=== PATIENT | female | born 1990 | race African-American/Black ===

== ENCOUNTER 2017-02-22 10:49 | Emergency (ER) | payer OTHER ==
[2017-02-22 10:54] VITALS: BP 145/81; PULSE 74; TEMP 98.1; BMI 28.3
--- NOTE | 2017-02-22 11:41 | PDOC ---
History of Present Illness - General Chief Complaint: Sore Throat Stated Complaint: THROAT DISCOMFORT Time Seen by Provider: 02/22/17 11:36 - History of Present Illness Initial Comments: 02/22/17 12:11 Patient is a 26-year-old female with no past medical history who presents to the emergency department today complaining that something is stuck in her throat. Patient states that she has felt the symptoms are approximately a year now, with onset starting approximately 3 months into her first . She states that she thought her symptoms would get better with the delivery of her child however they have remained the same. She states that she has tried clearing her throat with water, juice, milk with no relief. Admits to halitosis and nausea in the morning. Denies painful swallowing. Denies fevers, chills, chest pain and vomiting. Past History - Travel Traveled outside of the country in the last 30 days: No Close contact w/someone who was outside of country & ill: No - Past Medical History Allergies/Adverse Reactions: Allergies Allergy/AdvReac Type Severity Reaction Status Date / Time shellfish derived Allergy Mild Itching Verified 02/22/17 10:53 Home Medications: Ambulatory Orders NK [No Known Home Medication] 02/22/17 Asthma: Yes Cancer: No Cardiac Disorders: No Diabetes: No HTN: No Seizures: No Thyroid Disease: No - Immunization History Immunization Up to Date: Yes - Psycho/Social/Smoking Cessation Hx Anxiety: No Suicidal Ideation: No Smoking History: Never smoked Have you smoked in the past 12 months: No Information on smoking cessation initiated: No Hx Alcohol Use: No Drug/Substance Use Hx: No Substance Use Type: None Hx Substance Use Treatment: No Review of Systems - Review of Systems Able to Perform ROS?: Yes Is the patient limited Khmer proficient: No Constitutional: Yes: Weight Stable. No: Chills, Fever, Malaise, Weakness HEENTM: Yes: Difficulty Swallowing (Foreign body sensensation) Respiratory: No: Cough, Shortness of Breath, Wheezing Cardiac (ROS): No: Chest Pain, Chest Tightness ABD/GI: Yes: Nausea. No: Constipated, Diarrhea, Vomiting All Other Systems: Reviewed and Negative *Physical Exam - Vital Signs Last Vital Signs Temp Pulse Resp BP Pulse Ox 98.1 F 74 19 145/81 100 02/22/17 10:51 02/22/17 10:51 02/22/17 10:51 02/22/17 10:51 02/22/17 10:51 Medical Decision Making - Medical Decision Making 02/22/17 12:14 Patient is a 26-year-old female with no past medical history who presents to the emergency department today with a foreign body sensation in her throat. Her symptoms have been occurring for over a year and patient states that she does not remember getting a food bolus stuck in her throat. Differential diagnosis includes but not limited to zenkers diverticulum, globus hystericus. 1. X-ray soft tissue 2. Re-evaluate 02/22/17 13:20 X-ray: AP and lateral views revealed intact prevertebral soft tissues, straightening, intact cervical spine, normal epiglottis normal airway. There is no sign of radiopaque foreign body or prevertebral soft tissue air. There is normal hyoid bone and Thyroid cartilage. If symptoms persist further imaging with CT or direct visualization may be of help. Will discharge home at this time with ENT follow up. Pt. understands all discharge instructions and all questions were answered at this time. *DC/Admit/Observation/Transfer Diagnosis at time of Disposition: Foreign body sensation in throat - Discharge Dispostion Disposition: HOME Condition at time of disposition: Good Admit: No - Referrals Referrals: Nathan Tompkins MD [Staff Physician] - - Patient Instructions Additional Instructions: Your x-ray today did not show any foreign body stuck in your throat. Follow up with Dr. Tompkins (ears, nose, throat), for further work up. Take zantac twice a day for the nausea. This medication is over the counter. Return to the ED if you have trouble breathing, fevers, chills, or any changes in your symptoms. - Post Discharge Activity Work/School Note: Back to Work
== END 2017-02-22 13:30 | disposition home or self-care (01) ==
LOC: JERFT 10:49
DX: R09.89 Other specified symptoms and signs involving the circulatory and respiratory systems (principal)
CPT/HCPCS: 70360-TC; 84703; 99281-25

== ENCOUNTER 2018-04-21 13:25 | Emergency (ER) | payer OTHER ==
[2018-04-21 13:38] VITALS: BP 110/65; PULSE 75; TEMP 98.5; BMI 24.7
--- NOTE | 2018-04-21 14:41 | PDOC ---
History of Present Illness - General Chief Complaint: Pain, Acute Stated Complaint: PCP SENT, [facility] Time Seen by Provider: 04/21/18 14:34 - History of Present Illness Initial Comments: 04/21/18 14:38 27-year-old female with past medical history significant for asthma presents for evaluation of atraumatic onset of left wrist pain 2 weeks without associated symptoms. She describes her pain as achy with radiation into her thumb index and middle finger. She states the pain is worse at night. Past History - Past Medical History Allergies/Adverse Reactions: Allergies Allergy/AdvReac Type Severity Reaction Status Date / Time shellfish derived Allergy Mild Itching Verified 04/21/18 13:35 Home Medications: Ambulatory Orders NK [No Known Home Medication] 02/22/17 Asthma: Yes Cancer: No Cardiac Disorders: No COPD: No Diabetes: No HTN: No Seizures: No Thyroid Disease: No - Immunization History Immunization Up to Date: Yes - Suicide/Smoking/Psychosocial Hx Smoking History: Never smoked Have you smoked in the past 12 months: No Hx Alcohol Use: No Drug/Substance Use Hx: No Substance Use Type: None Hx Substance Use Treatment: No Review of Systems - Review of Systems Musculoskeletal: Yes: See HPI, Joint Pain Neurological: Yes: See HPI, Numbness All Other Systems: Reviewed and Negative *Physical Exam - Vital Signs Last Vital Signs Temp Pulse Resp BP Pulse Ox 98.5 F 75 18 110/65 99 04/21/18 13:35 04/21/18 13:35 04/21/18 13:35 04/21/18 13:35 04/21/18 13:35 - Physical Exam Comments: 04/21/18 14:39 Left first skin color and temperature are normal range of motion is full with mild discomfort. She has diffuse nonspecific tenderness a positive median nerve compression test no gross sensorimotor deficits. She's neurovascularly intact Medical Decision Making - Medical Decision Making 04/21/18 14:39 Carpal tunnel syndrome, response for nighttime use follow-up with hand surgery physician. Tylenol for pain. *DC/Admit/Observation/Transfer Diagnosis at time of Disposition: Carpal tunnel syndrome - Discharge Dispostion Disposition: HOME Condition at time of disposition: Stable Decision to Admit order: No - Referrals Referrals: Remigio Galindo MD [Primary Care Provider] - Jm Tang MD [Staff Physician] - - Patient Instructions Printed Discharge Instructions: Carpal Tunnel Syndrome Additional Instructions: Return to the emergency room should symptoms worsen or go unresolved. May take Tylenol for pain. The wrist splint is only for nighttime use the knee should sleep and he did not need to wear during the day. Follow-up with hand surgery for further evaluation and treatment options within the next 1-2 days. - Post Discharge Activity
== END 2018-04-21 14:48 | disposition home or self-care (01) ==
LOC: JERFT 13:25
DX: G56.02 Carpal tunnel syndrome, left upper limb (principal); Z87.09 Personal history of other diseases of the respiratory system
CPT/HCPCS: 99281-25

== ENCOUNTER 2019-07-09 14:09 | Emergency (ER) | payer OTHER ==
[2019-07-09 14:30] VITALS: BP 107/64; PULSE 70; TEMP 98.1; BMI 24.7
[2019-07-09] MEDS ORDERED: DIPHTH,PERTUSS(ACELL),TET 0.5 ML DISP.SYRIN IM ONE (14:55)
[2019-07-09] MEDS ORDERED: IBUPROFEN 600 MG TABLET (FP) PO ONE ×3 (14:55→15:37)
[2019-07-09] MEDS ORDERED: METHOCARBAMOL 500 MG TABLET PO ONE (15:34)
[2019-07-09] MEDS ORDERED: METHOCARBAMOL 500 MG TABLET ONE (15:39)
--- NOTE | 2019-07-09 15:39 | PDOC ---
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 Patient report taking Tylenol 4 days ago for symptoms but has not taken anything now since then. Denies numbness, tingling sensation or radiculopathy. Denies urinary frequency , dysuria or urinary symptoms. Patient report increased pain when getting up from seated position or laying position. Denies any fall or trauma. Denies any other symptoms Is this a multiple visit Asthma Patient?: No Past History - Past Medical History Allergies/Adverse Reactions: Allergies Allergy/AdvReac Type Severity Reaction Status Date / Time shellfish derived Allergy Mild Itching Verified 04/21/18 13:35 Home Medications: Ambulatory Orders Methocarbamol [Robaxin -] 500 mg PO BID PRN #20 tablet 07/09/19 Naproxen 500 mg PO BID PRN #20 tablet 07/09/19 Asthma: Yes Cancer: No Cardiac Disorders: No COPD: No Diabetes: No HTN: No Seizures: No Thyroid Disease: No - Immunization History Immunization Up to Date: Yes - Psycho Social/Smoking Cessation Hx Smoking History: Never smoked Have you smoked in the past 12 months: No Information on smoking cessation initiated: No Hx Alcohol Use: No Drug/Substance Use Hx: No Substance Use Type: None Hx Substance Use Treatment: No Review of Systems - Review of Systems Able to Perform ROS?: Yes Is the patient limited Syrian proficient: No Constitutional: No: Chills, Fever, Malaise HEENTM: No: Symptoms Reported, See HPI, Eye Pain, Blurred Vision, Tearing, Recent change in vision, Double Vision, Cataracts, Ear Pain, Ocular Prothesis, Ear Discharge, Nose Pain, Nose Congestion, Tinnitus, Nose Bleeding, Hearing Loss , Throat Pain, Throat Swelling, Mouth Pain, Dental Problems, Difficulty Swallowing, Mouth Swelling, Other Respiratory: No: Symptoms reported, See HPI, Cough, Orthopnea, Shortness of Breath, SOB with Exertion, SOB at Rest, Stridor, Wheezing, Productive cough, Hemoptysis, Other Cardiac (ROS): No: Symptoms Reported, See HPI, Chest Pain, Edema, Irregular Heart Rate, Lightheadedness, Palpitations, Syncope, Chest Tightness, Other ABD/GI: No: Symptoms Reported, Nausea, Vomiting : No: Dysuria, Discharge, Frequency, Flank Pain, Hematuria, Pain, Urgency Musculoskeletal: Yes: Symptoms Reported, See HPI, Back Pain Integumentary: No: Symptoms Reported Neurological: No: Symptoms reported, Tingling, Dizziness All Other Systems: Reviewed and Negative *Physical Exam - Vital Signs Last Vital Signs Temp Pulse Resp BP Pulse Ox 98.1 F 70 20 107/64 100 07/09/19 14:27 07/09/19 14:27 07/09/19 14:27 07/09/19 14:27 07/09/19 14:27 - Physical Exam 07/09/19 15:50 GENERAL: Well developed, well nourished. Awake and alert. No acute distress. CARDIOVASCULAR: Regular rate and rhythm. No murmurs, rubs, or gallops. PULMONARY: No evidence of respiratory distress. Lungs clear to auscultation bilaterally. No wheezing, rales or rhonchi. ABDOMINAL: Soft. Non-tender. Non-distended. No rebound or guarding. No organomegaly. Normoactive bowel sounds MUSCULOSKELETAL : mild tenderness over posterior paravertebral muscle of lumbosacral spine of L3-S1 on bilateral sides. No midline tenderness. No bony deformities SKIN: Warm and dry. Normal capillary refill. NEUROLOGICAL: Alert, awake, appropriate. No motor deficits in the lower extremities. Gait is normal without ataxia. PSYCHIATRIC: Cooperative. Good eye contact. Appropriate mood and affect. General Appearance: Yes: Nourished, Appropriately Dressed. 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 Patient report taking Tylenol 4 days ago for symptoms but has not taken anything now since then. Denies numbness, tingling sensation or radiculopathy. Denies urinary frequency , dysuria or urinary symptoms. Patient report increased pain when getting up from seated position or laying position. Denies any fall or trauma. Denies any other symptoms 07/09/19 15:49 Exam significant for mild tenderness to bilateral part of vertebral muscle of lumbosacral spine of L4-S1. No midline tenderness. No CVA tenderness. No radiculopathy. Patient symptoms likely back strain with spasm. Ibuprofen 600 mg p.o. ordered for pain and Robaxin 500 mg ordered for spasm. Patient stable for discharge on naproxen as needed for pain Robaxin for spasm with orthopedic spine follow-up Discharge - Discharge Information Problems reviewed: Yes Clinical Impression/Diagnosis: Lumbago without sciatica Qualifiers: Chronicity: acute Back pain laterality: bilateral Qualified Code(s): M54.5 - Low back pain Condition: Stable Disposition: HOME - Admission No - Additional Discharge Information Prescriptions: Methocarbamol [Robaxin -] 500 mg PO BID PRN #20 tablet PRN Reason: Back Pain Naproxen 500 mg PO BID PRN #20 tablet PRN Reason: Back Pain - Follow up/Referral Referrals: Remigio Galindo MD [Primary Care Provider] - - Patient Discharge Instructions Patient Printed Discharge Instructions: DI for Low Back Pain Additional Instructions: Your symptoms likely muscle back pain. Take prescribed medication as prescribed for pain. Apply hot compress to lower back 2-3 times a day as needed for pain. Rest and no heavy lifting for the next 2 days. 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
== END 2019-07-09 15:40 | disposition home or self-care (01) ==
LOC: JERFT 14:09
DX: M54.5 Low back pain (principal); J45.909 Unspecified asthma, uncomplicated; Z91.013 Allergy to seafood; X50.9XXA Other and unspecified overexertion or strenuous movements or postures, initial encounter; Y93.E9 Activity, other interior property and clothing maintenance; Y92.038 Other place in apartment as the place of occurrence of the external cause; Y99.8 Other external cause status
CPT/HCPCS: 99282-25

== ENCOUNTER 2021-08-18 05:40 | Emergency (ER) | payer OTHER ==
[2021-08-18 05:57] VITALS: BP 110/75; PULSE 87; TEMP 97.1; BMI 26.2
[2021-08-18] MEDS ORDERED: LIDOCAINE 5% TOPICAL PATCH TP ONE (06:11)
[2021-08-18] MEDS ORDERED: METHOCARBAMOL 500 MG TABLET PO ONE (06:11)
[2021-08-18] MEDS ORDERED: ACETAMINOPHEN 325 MG TABLET (FP) PO ONE (06:11)
[2021-08-18] MEDS ORDERED: KETOROLAC TROMETHAMINE 15 MG/ML VIAL IM ONE (06:11)
[2021-08-18] MEDS ORDERED: LIDOCAINE 5% TOPICAL PATCH ONE (06:41)
[2021-08-18] MEDS ORDERED: METHOCARBAMOL 500 MG TABLET ONE (06:41)
[2021-08-18] MEDS ORDERED: ACETAMINOPHEN 325 MG TABLET (FP) ONE (06:41)
[2021-08-18] MEDS ORDERED: KETOROLAC TROMETHAMINE 15 MG/ML VIAL ONE (06:42)
[2021-08-18] MEDS ORDERED: LIDOCAINE PATCH REMOVAL MC ONE (19:00)
== END 2021-08-18 07:32 | disposition home or self-care (01) ==
LOC: JER 05:40
PROC: 3E0233Z Introduction of Anti-inflammatory into Muscle, Percutaneous Approach (ICD-10-PCS; principal; 2021-08-18)
DX: M54.9 Dorsalgia, unspecified (principal)
CPT/HCPCS: 99283-25